=== PATIENT | male | born 1995 | race Two or more races ===

== ENCOUNTER 2023-10-19 01:33 | Emergency (ER) | payer OTHER ==
[~2023-10-19] VITALS: Ht 175.3 cm; Wt 105.0 kg
[2023-10-19 01:57] VITALS: BP 106/63; PULSE 85; RESP 22; TEMP 98.4
== END 2023-10-19 06:55 | disposition home or self-care (01) ==
LOC: EMS 01:36
DX: K43.9 Ventral hernia without obstruction or gangrene (principal); L60.0 Ingrowing nail; F41.9 Anxiety disorder, unspecified; F12.90 Cannabis use, unspecified, uncomplicated; Z59.00 Homelessness unspecified
CPT/HCPCS: 93005; 99283

== ENCOUNTER 2023-10-19 12:16 | Emergency (ER) | payer OTHER ==
[~2023-10-19] VITALS: Ht 177.8 cm; Wt 105.5 kg
[2023-10-19 12:28] VITALS: TEMP 98.5
[2023-10-19] MEDS: ACETAMINOPHEN 500 MG TABLET PO ONE (12:30)
[2023-10-19 14:10] VITALS: BP 145/75; PULSE 75; RESP 18
== END 2023-10-19 14:23 | disposition home or self-care (01) ==
LOC: EMS 12:42
DX: S80.01XA Contusion of right knee, initial encounter (principal); F12.90 Cannabis use, unspecified, uncomplicated; Z59.00 Homelessness unspecified; W09.8XXA Fall on or from other playground equipment, initial encounter; Y93.89 Activity, other specified; Y92.89 Other specified places as the place of occurrence of the external cause; Y99.8 Other external cause status
CPT/HCPCS: 99282; Z7502; Z7610

== ENCOUNTER 2023-10-23 16:37 | Emergency (ER) | payer OTHER ==
[~2023-10-23] VITALS: Ht 182.9 cm; Wt 97.0 kg
[2023-10-23 17:35] VITALS: BP 132/80; PULSE 72; RESP 18; TEMP 98.6
== END 2023-10-23 20:47 | disposition home or self-care (01) ==
LOC: EMS 17:21
DX: F20.9 Schizophrenia, unspecified (principal); F12.90 Cannabis use, unspecified, uncomplicated
CPT/HCPCS: 99283; Z7502